=== PATIENT | male | born 1990 | race Caucasian/White ===

== ENCOUNTER 2017-09-16 19:43 | Emergency (ER) | payer OTHER ==
[2017-09-16] MEDS: DOXYCYCLINE HYCLATE 100 MG TAB PO (22:07)
[2017-09-16] MEDS: NAPROXEN 250 MG TAB PO (22:07)
[2017-09-19 00:09] LABS: Lyme Disease IgG/IgM Antibodie <0.91 ISR (0.00-0.90); Lyme Disease IgM Ab Quantitati <0.80 index (0.00-0.79)
== END 2017-09-16 22:11 | disposition home or self-care (01) ==
LOC: M ED 19:43
DX: A69.20 Lyme disease, unspecified (principal)
CPT/HCPCS: 86617